=== PATIENT | male | born 1970 | race Hispanic/Latino ===

== ENCOUNTER 2021-01-03 14:20 | Outpatient (CLI) | payer BC, SELFPAY ==
--- NOTE | ~2021-01-03 | MR_ITS ---
EXAMINATION: MR ankle RT wo con DATE: 01/03/2021 15:35 INDICATION: Acute onset right ankle pain. TECHNIQUE: Magnetic resonance imaging (MRI) of the right ankle was performed without intravenous cont rast. Sequences included sagittal, coronal, and axial proton-density weighted fast spin echo without and with fat saturation. COMPARISON: None. FINDINGS: Medial ankle ligaments: Deep and superficial deltoid ligaments as well as the spring ligament are normal. Lateral ankle ligaments: The anterior and posterior inferior tibiofibular ligaments are normal. The anterior talofibular, calc aneofibular and posterior talofibular ligaments are normal. Tendons: Small calcaneal enthesophyte with mild enthesopathic ossification in the distal aspect of the otherwi se normal Achilles tendon. There is mild marrow edema underlying the insertion of the Achilles tendon . No cortical erosion or associated retrocalcaneal bursitis. The peroneus longus and brevis tendons a re normal. The tibialis anterior and extensor hallucis longus and extensor digitorum longus tendons a re normal. The tibialis posterior, flexor digitorum longus and flexor hallucis longus tendons are nor mal. Plantar fascia: Plantar aponeurosis is normal. Bones/other: Bone alignment is normal. Normal marrow signal aside from the previously noted marrow edema at the ce phalad aspect of the posterior tuberosity of the calcaneus. No fracture or pathologic marrow replacin g process. Joint spaces are normal. Fluid: Physiologic amount fluid in the joint space. No tenosynovitis, bursitis or other abnormal fluid colle ctions. IMPRESSION: 1. Mild Achilles enthesitis Reviewed, dictated and finalized at location A. IMPRESSION: 1. Mild Achilles enthesitis
== END 2021-01-03 14:21 | disposition home or self-care (01) ==
PROVIDERS: PCP Physician Assistant; Visit Provider Physician Assistant
DX: M77.51 Other enthesopathy of right foot and ankle (principal)
CPT/HCPCS: 73721

== ENCOUNTER → 2023-04-13 06:58 | Outpatient (CLI) | payer BC, SELFPAY ==
--- NOTE | ~2023-04-13 | MR_ITS ---
MRI of the right ankle Clinical history: Achilles tendinitis Technique: Coronal proton-density and proton-density fat-sat images, axial proton-density and proton- density fat-sat images, and sagittal proton-density and proton-density fat-sat images were acquired. Findings: Syndesmotic ligaments are intact. Anterior and posterior talofibular ligaments are intact. Calcaneofibular ligament is intact. Deltoid ligament is intact. Medial flexor tendons, peroneus longus tendon, anterior extensor tendons are intact. There is minimal distal Achilles tendinosis. Suspected focal longitudinal split tear of the peroneus brevis tendon. There is amorphous marrow edema at the posterior calcaneus at the Achilles tendon insertion. No osteo chondral lesion of the talar dome. Remaining bone marrow signals are intact. Joint spaces are preserv ed. No joint effusion. Plantar fascia is intact. Normal signal preserved in the sinus Tarsi. No soft tissue mass or fluid co llection seen. Impression: Minimal distal Achilles tendinosis with presumed reactive marrow edema at the posterior calcaneus. Co rrelate for bone contusion. Suspected focal longitudinal split tear of the peroneus brevis tendon at the level of the lateral mal leolar tip. Reviewed, dictated and finalized at location . Impression: Minimal distal Achilles tendinosis with presumed reactive marrow edema at the p osterior calcaneus. Correlate for bone contusion. Suspected focal longitudinal split tear of the peroneus brevis tendon at the le wale of the lateral malleolar tip.
== END ==
PROVIDERS: PCP Podiatrist Foot & Ankle Surgery; Visit Provider Podiatrist Foot & Ankle Surgery
DX: M76.61 Achilles tendinitis, right leg (principal)
CPT/HCPCS: 73721

== ENCOUNTER 2023-04-30 13:28 | Outpatient (CLI) | payer BC, SELFPAY ==
--- NOTE | 2023-04-30 15:13 | ECG_ITS ---
Measurements Intervals [place] Rate: 89 P: 41 UT: 143 QRS: 25 QRSD: 95 T: 56 QT: 361 QTc: 439 Interpretive Statements SINUS RHYTHM DELAYED PRECORDIAL R/S TRANSITION MINIMAL Q WAVES- INFERIOR LEADS BASELINE ARTIFACT- I, III, AVR, AVL, AVF BORDERLINE ECG NO PREVIOUS ECG AVAILABLE FOR COMPARISON Electronically Signed On 04-30-2023 18:46:08 [employer] by Michael Brink D.O.
== END 2023-04-30 13:29 | disposition home or self-care (01) ==
PROVIDERS: Visit Provider Podiatrist Foot & Ankle Surgery
DX: E78.00 Pure hypercholesterolemia, unspecified (principal); Z01.818 Encounter for other preprocedural examination; R94.31 Abnormal electrocardiogram [ECG] [EKG]
CPT/HCPCS: 93005

== ENCOUNTER 2023-05-01 02:42 | Day surgery (SDC) | payer BC, SELFPAY ==
[2023-04-28 09:15] VITALS: BMI 26.4
--- NOTE | 2023-04-28 09:19 | PC.NURSE ---
Report to the Outpatient Waiting Room, entrance under the green pavilion located off [facility], at time 9:00 on date 05/01/23. Planned Procedure Time: 11:00. Time changes happen often and if your time is changed the preop area will call you the afternoon before. - You and your visitor will be asked to self-screen and do not enter if you have any COVID symptoms. - A mask is optional within the hospital at this time. Patients may have clear liquids (water, carbonated beverages, clear teas, apple juice) until 3 hours prior to surgery (8:00) with a maximum of 20 ounces. - No food from midnight until time of surgery Take the following medications with a SIP of water the morning of surgery: NONE DO NOT STOP ANY OF YOUR OTHER PRESCRIPTION MEDICATIONS PRIOR TO SURGERY ?EXCEPT THE FOLLOWING Medications to discontinue per physician: N/A Date to take last dose: N/A Please no make-up, nail paraguayan, hairspray, perfume, deodorant, or body powder the day of surgery. No jewelry (including any body piercings) or valuables the day of surgery, leave them at home. Please take a shower or bath the night before, or the morning of, surgery with an antibacterial soap. Wear comfortable, loose fitting clothing. - Jewelry must be removed prior to entering the operating room. Rings and piercings that are not removed may be cut off. - The hospital will not accept responsibility for valuables. - Please leave all valuables, including medications, at home the day of surgery. If you are going home after surgery, a licensed driver license reviewing officer must drive you home. - NO public transportation without another adult if you receive anesthesia. - We recommend that an adult stay with you for 24 hours following discharge. - We also recommend that you do not drive, make important decision, drink alcoholic beverages, or take any drugs that were not prescribed by your health care provider for at least 24 hours after your discharge time. Follow any additional instructions given to you from your surgeon. If you or anyone in your household have experienced Covid symptoms in the past week, please notify your surgeon or the nurse liaison at the phone number below for possible testing. Telephone instructions given to PT - CLAUDIA RAMOS and asked if any additional questions and then verbalized understanding. Patient advised to call surgeon office or pre surgery nurse liaison [phone] if any additional questions.
[2023-05-01] VITALS (8 sets, daily range): BP systolic 120–145; BP diastolic 82–94; PULSE 62–73; RESP 9–20; TEMP 36.6; O2SAT 97–100
--- NOTE | ~2023-05-01 | XR_ITS ---
EXAMINATION: XR surgery orthopedic DATE: 05/01/2023 12:09 INDICATION: Right foot exostectomy and Achilles tendon reattachment TECHNIQUE: 2 fluoroscopic images of the right calcaneus were obtained during procedure performed by Lissett Amato. Radiologist was not present for the imaging or procedure. The amount of fluoroscopy time used during this procedure was 0.1 minutes. COMPARISON: Right ankle MRI dated 04/13/2023 FINDINGS: Images demonstrate some gas in the soft tissues at the surgical bed overlying the posterior tuberosit y of the calcaneus at the site of a prior moderate-sized Achilles calcaneal spur. There is also a sma ll plantar calcaneal spur. IMPRESSION: 1. Fluoroscopy utilized during reported exostectomy and Achilles tendon enhancement at the posterior tuberosity of the right calcaneus. See procedure note for further detail. Reviewed, dictated and finalized at location A. OVEMENT ANALYST IMPRESSION: 1. Fluoroscopy utilized during reported exostectomy and Achilles tendon enhance ment at the posterior tuberosity of the right calcaneus. See procedure note for further detail.
--- NOTE | 2023-05-01 07:13 | WPDHPUPDATE1 ---
History and Physical Update Update Date/Time: 05/01/23 07:13 History and Physical has been reviewed, including an updated exam of the patient. There are NO changes in the patient's condition. Risks, benefits, and alternatives have been discussed and questions answered. Patient agrees to proceed with procedure.
[2023-05-01] MEDS: LACTATED RINGERS 1,000 ML 30 ML IV CONT (09:25)
--- NOTE | 2023-05-01 10:18 | WPDANESEPPF ---
Anes - Initial Pre Proc Eval Procedure: Operation Date: 05/01/23 11:00 Proposed Procedures p Retrocalcaneal Exostectomy with Detachment and Re-Attachment of Achilles Tendon Right Foot - Paulino Amato JR, MD Date/Time: 05/01/23 10:18 Surgeon: Paulino Amato JR, MD Pre Op Diagnosis: achilles tendonopathy right foot Patient Data Age: 52 Gender: M Height: 1.8 m Weight: 87.4 kg Allergies Allergy/AdvReac Type Severity Reaction Status Date / Time No Known Allergies Allergy Unverified 04/28/23 09:15 Home Medications Medication Instructions Recorded Confirmed Type atorvastatin 40 mg tablet 40 mg PO HS 04/28/23 04/28/23 History Patient hx anesthesia problems: none Family hx anesthesia problems: none Results Review: All pre-operative results and documents have been reviewed as part of the pre-operative evaluation. [facility] Family History Family History Sibling Family history of gout Family history of heart disease in male family member before age 55 Family history of diabetes mellitus in first degree relative Mother Family history of liver disease Family history of diabetes mellitus in first degree relative Father Family history of heart disease in male family member before age 55 Grandparent Family history of heart disease in male family member before age 55 Other Diabetes mellitus Family history of allergic disorder Hypertension Social History Social History Smoking status: Never smoker Alcohol intake: former Alcohol use details: QUITTING Substance use: never Substance use type: does not use Living arrangements: with family Spiritual care concerns: No Anes - Eval Final PreProcedure Day of Procedure 05/01/23 10:18 Patient weight: overweight Heart: regular rate and rhythm Lungs: clear to auscultation Airway: Mallampati scale class II Neurological: alert and oriented Last oral intake: >/= 8 hours ASA classification: II Emergent: no Anesthetic plan: proceed Anesthesia type and monitoring: general ETT and standard monitoring Results Review: All pre-operative results and documents have been reviewed as part of the pre-operative evaluation. Informed Consent: The patient's anesthetic plan and its attendant risks and benefits were discussed with the patient/family/POA. Questions were solicited and answers provided to the satisfaction of the patient/family/POA.
[2023-05-01] MEDS: ceFAZolin 2 GM/D5W 50 ML 2 GM/50 ML BAG IVPB (10:46)
[2023-05-01] MEDS: LIDOCAINE HCL 2% PF INJ 5 ML VIAL 20 ML INFILTRATE (11:21)
--- NOTE | 2023-05-01 12:27 | W.PM.PROC2 ---
Procedure Note - Detailed Date of Procedure 05/01/23 Pre-op Diagnosis 1. 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 Gastroc Soleus Equinus right foot Post-op Diagnosis Same Procedure Performed 1. Retrocalcaneal exostectomy right foot with detachment and reattachment of the Achilles Tendon 2. Tendo Achilles Lengthening right foot Surgeon Paulino Amato JR, DARIEL Anesthesia General and Local Indications Pain to the retrocalcaneal region of the right foot Description of Procedure Under mild sedation, the patient was brought to the operating room, placed on the operating table in the prone position. A pneumatic thigh tourniquet was placed about the patient's right thigh . Following general anesthesia I performed a local anesthetic nerve block with 20cc's of2% Lidocaine plain and 0.5% Marcaine plain along with a proximal along the posterior proximal leg including the common peroneal nerve 1cm posterior and 3cm distal to the neck of the fibula. The foot and distal leg were then scrubbed, prepped, and draped in the usual aseptic manner. An Esmarch bandage was then used to examine the patient's right foot and pneumatic thigh tourniquet was then inflated. Surgery began in the following manner. Attention was directed to the posterior aspect of right leg where a curvilinear J shaped incision was made lateral to the retrocalcaneal exostosis which was palpable. The incision was made starting 6cm above the insertion of the Achilles and extending 3cm inferior and medial to the calcaneus. The incision was continued deep down through the subcutaneous tissues using sharp and blunt dissection. All bleeders were cauterized as necessary. At this point dissection was continued exposing the the insertional component of the Achilles Tendon. There was noted hypertrophy to the distal tendon. A midsubstance linear Achilles tendon incision was made exposing a large intrasubstance calcified region of bone which was carefully excised and discarded. There was a large posterior and superior exostosis noted which was resected with an osteotome and mallet and feathered smooth with a bone rasp. The area was flushed with copious amounts of sterile saline. Fluoroscopy was used to make sure that enough of the retrocalcaneal region was resected approximately 3m from superior to inferior and medial to lateral and 2cm from posterior to anterior. Next, utilizing standard principle and techniques the [employer] SpeedBridge 2.0 Fibertack system was used to reattach the debulked Achilles tendon to the posterior calcaneus. Less than 90 degrees of dorsiflexion of the ankle was noted post fixation so a small incision about the paratenon, next I made a proximal a triple wellington section. At this point adequate dorsiflexion was achieved. Adequate stable reattachment was noted. I flushed the wound site with copious amounts of sterile saline. Next, the paratenon and overlying subcutaneous tissue was reapproximated with 4-0 Vicryl and 4-0 Vicryl correspondingly. Next, the skin was reapproximated and coapted with 4-0 Monocryl in running subcuticular suture fashion technique. Upon completion of the procedure, the incision was dressed with Adaptic, 4 x 4's, Kerlix, and Dakota Wrap. The pneumatic thigh tourniquet was then deflated and a prompt hyperemic response noted to all digits of the right foot. A posterior splint was then applied. The patient did very well with the procedure and the anesthesia. Next, the patient was transferred to the recovery room with vital signs stable and vascular status intact to all toes of the foot. Following a period of postoperative monitoring, the patient will be discharged home on the following written and oral postoperative instructions: 1. Keep the dressing clean, dry, and intact. Use a cast protector bag with showers. 2. The patient to be strictly nonweightbearing with a knee scooter. 3. The patient should ice and elevate the right foot when at r
[2023-05-01] MEDS: fentaNYL CITRATE INJ (*CRX) 100 MCG/2 ML VIAL 25 MCG IV PUSH (12:59)
[2023-05-01] MEDS: oxyCODONE HCL (*CRX) 5 MG TAB IR PO (13:55)
== END 2023-05-01 14:23 | disposition home or self-care (01) ==
PROVIDERS: PCP Physician Assistant; Visit Provider Podiatrist Foot & Ankle Surgery
PROC: (CPT 27650; principal; 2023-05-01 11:00)
DX: M76.61 Achilles tendinitis, right leg (principal); M62.461 Contracture of muscle, right lower leg
CPT/HCPCS: 28118; 27685; 99199; A9270; J0690; J1100; J2250; J2405; J2704; J3010; J7120

== ENCOUNTER 2024-09-21 18:02 | Emergency (ER) | payer OTHER, SELFPAY ==
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
--- NOTE | ~2024-09-21 | XR_ITS ---
Right wrist Technique: PA, oblique, lateral, and ulnar deviation views were obtained. Clinical History: Pain Findings: No acute fracture or dislocation is seen. Osseous alignment is anatomic. Joint spaces are p reserved. Soft tissues are unremarkable. Impression: Unremarkable right wrist radiographs. Reviewed, dictated and finalized at location . Impression: Unremarkable right wrist radiographs.
[2024-09-21 18:18] VITALS: BP 159/93; PULSE 78; RESP 18; TEMP 36.7; O2SAT 99
--- NOTE | 2024-09-21 19:07 | ECG_ITS ---
Test Date: 2024-09-21 19:20:03 Measurements Intervals [place] Rate: 71 P: 35 CT: 151 QRS: 8 QRSD: 99 T: 38 QT: 394 QTc: 428 Interpretive Statements SINUS RHYTHM BORDERLINE R WAVE PROGRESSION, ANTERIOR LEADS BASELINE ARTIFACT- I, II, AVR, AVL BORDERLINE ECG No previous ECG available for comparison Electronically Signed On 09-21-2024 20:24:08 CDT by Michael Brink D.O.
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
--- NOTE | 2024-09-21 19:26 | PC.NURSE ---
Assumed care of patient after receiving bedside report from MARIE Mason @ [phone].
[2024-09-21 19:31] LABS: Basophils Absolute Auto 0.1 K/mm3 (0.0-0.1); Basophils Percent Auto 1.1 % (0.2-1.2); Eosinophils Absolute Auto 0.2 K/mm3 (0-0.3); Eosinophils Percent Auto 1.9 % (0-4.4); Hematocrit 45.7 % (42.0-52.0); Hemoglobin 15.9 g/dL (14.0-18.0); Immature Granulocyte Absolute 0.02 K/mm3 (0.00-0.031); Immature Granulocyte Percent A 0.2 % (0-0.5); Lymphocytes Absolute Auto 2.64 K/mm3 (0.9-3.2); Lymphocytes Percent Auto 26.7 % (18.3-44.2); Mean Corpuscular HGB Conc 34.8 g/dl (32-36); Mean Corpuscular Hemoglobin 30.6 pg (26-34); Mean Corpuscular Volume 88.1 fl (80-100); Mean Platelet Volume 10.8 fl (7.4-10.4); Monocytes Absolute Auto 0.5 K/mm3 (0.1-0.6); Monocytes Percent Auto 4.8 % (2.6-8.5); Neutrophils Absolute Auto 6.4 K/mm3 (1.3-6.7); Neutrophils Percent Auto 65.3 % (45.5-73.1); Platelet Count Result 200 k/mm3 (150-375); Red Blood Count 5.19 M/mm3 (4.6-6.20); Red Cell Distribution Width 12.6 % (11.5-14.5); White Blood Count 9.9 K/mm3 (4.5-10.0)
[2024-09-21 19:35] LABS: Add Urine Microscopic? NO; Appearance Urine Clear (Clear); Bilirubin Urine Negative (Negative); Blood Urine Negative (Negative); Color Urine Yellow (Yellow); Glucose Urine UA Negative (Negative); Ketones Urine Negative (Negative); Leukocyte Esterase Ur Negative LEU/UL (Negative); Nitrate Urine Negative (Negative); Protein Urine Negative (Negative); Specific Grav Ur 1.008 (1.001-1.035); Urobilinogen Urine 0.2 mg/dL (<2.0); pH Urine 6.5 (5.0-9.0)
--- OUTSIDE RECORDS SUMMARY | 2024-09-21 19:36 | XMS_ITS | Encounter Summary ---
Author Organization [facility] Healthcare Address [address] [place] [address] Care Team Providers Care Home Worker Name Role Phone Juliana Warner Primary Care Provider [phone] Encounter Details Date Type Department Care Team ([facility] st Contact Info) Description 09/17/2024 Results Follow-Up [facility] Family Medicine [address] [place] [address] Juliana Warner PA [address] [place] [address] Social History Tobacco Use Types Packs/Day Years Used Date Smoking Tobacco: Never Smokeless Tobacco: Never Alcohol Use Standard Drinks/Week Comments Yes 0 (1 standard drink = 0.6 oz pur e alcohol) social AUDIT-C Answer Date Recorded Q1: How often do you have a drink containing alc ohol? 2-4 times a month 10/02/2023 Q2: How many drinks containi ng alcohol do you have on a typical day when you are drinking? 3 or 4 10/02/2023 Q3: How often do you have si x or more drinks on one occasion? 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
--- OUTSIDE RECORDS SUMMARY | 2024-09-21 19:36 | XMS_ITS | Clinical Summary ---
Author Organization [facility] Address [address] [place] [address] Care Team Providers Care Cushion Spring Assembler Name Role Phone Unavailable Primary Care Provider Unavailabl e Source Comments [facility],non-owned Affiliates and Associated Physician Practices is amultiple site organization consisting of ambulatory clinics and hospital sitesin [place], [place], [place] and [place]. This disclosure is being madepursuant to the Care Everywhere program and may not contain all information available regarding this patient. Last updated 18.[facility] Allergies No known active allergies Medications * Be aware that medications may not be up to date on this document. Alwaysverify current medications with the patient. Medication Sig Dispensed Refills Start Date End Date Status atorvastatin (LIPITOR) 10 MG tablet 2 02/09/2019 Active fluticasone propionate (FLONASE) 50 MCG/ACT nasal spray [place] 1 spray into the nose Active gabapentin (NEURONTIN) 100 MG capsule Take 1 capsule by mouth at bedtime 90 capsule 1 03/21/2019 Active Social History Tobacco Use Types Packs/Day Years Used Date Smoking Tobacco: Never Smokeless Tobacco: Never Alcohol Use Standard Drinks/Week Comments Yes 0 (1 standard drink = 0.6 oz pur e alcohol) Sex and Gender Information Value Date Recorded Sex Assigned at Not on file Gender Identity Not on file Sexual Orientation Not on file Last Filed Vital Signs Vital Sign Reading Time Taken Comments Blood Pressure 141/82 03/21/2019 7:47 AM CDT Pulse 73 03/21/2019 7:47 AM CDT Temperature - - Respiratory Rate - - Oxygen Saturation - - Inhaled Oxygen Concentration - - Weight 87.1 kg (192 lb) 03/21/2019 7:47 AM CDT Height 180.3 cm (5' 11 ) 03/21/2019 7:47 AM CDT Body Mass Index 26.78 03/21/2019 7:47 AM CDT Plan of Treatment Health Maintenance Due Date Last Done Comments COLOGUARD (AGES 45-75) - COL ON CA SCREENING 1970 COLON MONITORING 1970 COLONOSCOPY - COLON CA SCREENING 1970 CT COLONOGRAPHY - COLON CA SCREENING 1970 Colorectal Cancer Screening 1970 FIT - COLON CA SCREENING 1970 FLEX SIG - COLON CA SCREENING 1970 HIV SCREENING 1985 HEPATITIS C SCREENING 10/09/1988 DTAP/TDAP/TD VACCINES (1 - Tdap) 1989 HEPATITIS B VACCINE (1 of 3 - 19+ 3-dose series) 1989 PNEUMOCOCCAL VACCINE 50+ (1 of 1 - PCV) 2020 ZOSTER VACCINE (1 of 2) 2020 SCREENING FOR DIABETES 03/25/2022 03/25/2019 COVID-19 VACCINE (1 - 2023-2 5 season) 2024 INFLUENZA VACCINE (#1) 2024 DEPRESSION SCREENING 06/22/2024 HIB VACCINE Aged Out No longer eligi ble based on patient's age to complete this topic HPV VACCINE Aged Out No longer eligi ble based on patient's age to complete this topic MENINGOCOCCAL (Group B) VACC INE SHARED DECISION-MAKING Aged Out No longer eligibl e based on patient's age to complete this topic MENINGOCOCCAL GROUPS A/C/Y/W VACCINE Aged Out No longer eligible b ased on patient's age to complete this topic PNEUMOCOCCAL VACCINE Aged Out No long er eligible based on patient's age to complete this topic Procedures Procedure Name Priority Date/Time Associated Diagnosis Comments HEMOGLOBIN A1C 03/25/2019 7:10 AM CDT from Last 3 Months or Most Recently Relevant to Health Maintenance Results * HEMOGLOBIN A1C (03/25/2019 7:10 AM CDT) Hemoglobin A1c 5.4 <5.7 % of total Hgb [facility] Comment: For the purpose of screening for the presence of diabetes: <5.7% Consistent with the absence of diabetes 5.7-6.4% Consistent with increased risk for diabetes (prediabetes) > or =6.5% Consistent with diabetes This assay result is consistent with a decreased risk of diabetes. Currently, no consensus exists regarding use of hemoglobin A1c for diagnosis of diabetes in children. According to [place] Diabetes Association (ADA) guidelines, hemoglobin A1c <7.0% represents optimal control in non- diabetic patients. Different metrics may apply to specific patient populations. Standards of Medical Care in Diabetes(ADA). Test Performed at: [facility] [address] [place] [address] RJ BUI DO,MPH 03/25/2019 7:10 AM CDT 03/25/2019 7:12 AM CDT Veena Nicholas MD LAB - CHEMISTRY [facility] Organization Address City/State/ZIP Co de Phone Number [facility] [address] [place] [address] from Last 3 Months or Most Recently Relevant to Health Maintenance
--- OUTSIDE RECORDS SUMMARY | 2024-09-21 19:36 | XMS_ITS | Clinical Summary ---
Author Organization [facility] Address [facility] [address] [place] [address] Care Team Providers Care Entry Level Software Engineer Name Role Phone Juliana Warner Primary Care Provider [phone] Allergies No known active allergies Medications levothyroxine 25 MCG tablet Take 25 mcg by mouth daily. 03/17/2021 Active rosuvastatin 10 MG tablet Take 10 mg by mouth daily. 03/15/2021 Active fluticasone propionate 50 MCG/ACT nasal spray 1 spray by Nasal route. Active Active Problems No known active problems Immunizations Name Administration Dates Next Due [email or web address] ([employer]id[employer]) COVID-19 AD26 VACCINE 0.5 ML IM SUSP 04/26/2021,08/30/2020 Family History Medical History Relation Comments Heart Disease Father Cancer Mother Relation Status Comments Father Alive Mother Alive Social History Tobacco Use Types Packs/Day Years Used Date Smoking Tobacco: Never Smokeless Tobacco: Never Alcohol Use Standard Drinks/Week Comments Yes 0 (1 standard drink = 0.6 oz pur e alcohol) occas. Sex and Gender Information Value Date Recorded Sex Assigned at Not on file Legal Sex Male 11:53 AM CDT Gender Identity Not on file Sexual Orientation Not on file Last Filed Vital Signs Vital Sign Reading Time Taken Comments Blood Pressure 113/83 05/09/2021 8:25 AM CURVE SAW OPERATOR Pulse 56 05/09/2021 8:25 AM CURVE SAW OPERATOR Temperature 37.6 C (99.7 F) 05/09/2021 8:04 AM CURVE SAW OPERATOR Respiratory Rate 16 05/09/2021 8:25 AM CURVE SAW OPERATOR Oxygen Saturation 97% 05/09/2021 8:25 AM CURVE SAW OPERATOR Inhaled Oxygen Concentration - - Weight 86.2 kg (190 lb) 05/06/2021 11:06 AM CURVE SAW OPERATOR Height 180.3 cm (5' 11 ) 05/06/2021 11:06 AM CURVE SAW OPERATOR Body Mass Index 26.5 05/06/2021 11:06 AM CURVE SAW OPERATOR Plan of Treatment Health Maintenance Due Date Last Done Comments Annual Physical 1973 Hepatitis C 1988 Hepatitis B Vaccines (1 of 3 - 19+ 3-dose series) 1989 Zoster Vaccines (1 of 2) 2020 COVID-19 Vaccine (3 - 2023-2 5 season) 2024 04/26/2021, 08/30/2020 DTaP, Tdap and Td Vaccines ( 2 - Td or Tdap) 12/31/2028 12/31/2018 Colorectal Cancer Screening Colonoscopy (10 Years) 05/09/2031 05/09/2021, 05/09/2021 Meningococcal B Vaccine Aged Out No l onger eligible based on patient's age to complete this topic Meningococcal Vaccine Aged Out No manuel dominique eligible based on patient's age to complete this topic Pneumococcal Vaccine: Pediatrics (0 to 5 Years) and At-Risk Patients (6 to 64 Years) Aged Out No longer eligible b ased on patient's age to complete this topic RSV Immunizations Under 20 Months Aged Out No longer eligible b ased on patient's age to complete this topic Procedures Procedure Name Priority Date/Time Associated Diagnosis Comments COLONOSCOPY Routine 05/09/2021 7:03 AM CURVE SAW OPERATOR from Last 3 Months or Most Recently Relevant to Health Maintenance Insurance Care Teams Entry Level Software Engineer Relationship Specialty Start Date End Date Juliana Warner PA [address] [place] [address] PCP - General PHYSICIAN CMM OPERATOR 05/09/21
--- OUTSIDE RECORDS SUMMARY | 2024-09-21 19:37 | XMS_ITS | Clinical Summary ---
Author Organization [facility] [address] [facility] Address [address] [place] [address] Care Team Providers Care Tutorial Laboratory Supervisor Name Role Phone Juliana Warner Primary Care Provider [phone] Allergies Active Allergy Reactions Criticality Noted Date Comments Oxycodone Chest tightness Medium 10/02/2023 Medications fluticasone propionate (FLONASE) 50 mcg/actuation nasal spray Administer 1 spray into each nostril as needed for rhinitis Active atorvastatin (LIPITOR) 40 mg tabletIndications: Mixed hyperlipidemia Take 1 tablet (40 mg total) by mouth daily 90 tablet 1 4 Active lisinopriL (PRINIVIL,ZESTRIL) 20 mg tablet Take 1 tablet (20 mg total) by mouth daily 90 tablet 1 4 Active Active Problems Problem Noted Date Diagnosed Date Pre-diabetes 04/08/2024 Assessment & Plan (05/13/2024 11:06 AM EVENT PROMOTER): Pre-diabetes/hyperglycemia is a precursor to Dm. Stressed importance of working on diet (decrease your simple sugars and one carbohydrate with each meal) and increase you exercise to achieve weight loss and this will help prevent you from progressing to diabetes. Assessment & Plan (04/08/2024 7:45 PM CDT): Pre-diabetes/hyperglycemia is a precursor to Dm. Stressed importance of working on diet (decrease your simple sugars and one carbohydrate with each meal) and increase you exercise to achieve weight loss and this will help prevent you from progressing to diabetes. Hypertension, essential 04/08/2024 Assessment & Plan (05/13/2024 11:06 AM EVENT PROMOTER): Bp is stable/in acceptable range for any co-morbidities. Encouraged to limit sodium intake and exercise for weight control. Continue lisinopril 20. Continue to monitor readings and if systolic is again above 140 consistently he is to call. Follow up in September for a wellness or sooner for any other problems or concerns Assessment & Plan (04/08/2024 7:46 PM CDT): Encouraged to limit sodium intake and exercise for weight control. BP is still not well controlled. Tolerating lisinopril 10. Increase to 20 mg. Come in in couple of weeks for blood pressure check with the nurse to make sure we have him in good range. Need for influenza vaccination 05/04/2022 Assessment & Plan (04/08/2024 7:45 PM CDT): Flu vaccine updated in the office today Assessment & Plan (05/04/2022 10:09 AM EVENT PROMOTER): Updated in the office today Acquired hypothyroidism 03/15/2021 Assessment & Plan (05/13/2024 11:06 AM EVENT PROMOTER): Check labs Assessment & Plan (10/03/2023 2:42 PM CDT): Continue levothyroxine. Monitor labs. Assessment & Plan (04/11/2023 1:44 PM CDT): Continue levothyroxine. Monitor labs. Patient's stops taking the thyroid and his level has stabilized in normal range. Reviewed that early hypothyroid can wax and wane. Will continue to keep monitor on his level. Reviewed signs and symptoms of hypothyroid if these would occur with check him sooner. Assessment & Plan (02/14/2023 10:47 PM CDT): Continue levothyroxine. Monitor labs. Assessment & Plan (05/04/2022 10:08 AM EVENT PROMOTER): Patient stop the levothyroxine. Recheck labs Assessment & Plan (12/03/2021 7:52 AM CDT): Continue levothyroxine. Monitor labs. Assessment & Plan (03/15/2021 6:01 PM CDT): Tolerating the levothyroxine without problems. Due to recheck labs. BMI 27.0-27.9,adult 02/14/2020 Assessment & Plan (05/13/2024 10:08 AM EVENT PROMOTER): Weight/BMI is in healthy range. Continue healthy lifestyle to maintain. Assessment & Plan (04/01/2024 7:23 AM CDT): Weight/BMI is in healthy range. Continue healthy lifestyle to maintain. Assessment & Plan (02/18/2020 8:23 PM CDT): Weight/BMI is in healthy range. Continue healthy lifestyle to maintain. Mixed hyperlipidemia 12/31/2017 Assessment & Plan (05/13/2024 11:05 AM EVENT PROMOTER): Encouraged patient to follow low fat/low chol diet like the Mediterranean diet. Increase good fats in the diet. Increase exercise. Monitor labs as needed. Continue atorvastatin 40 Assessment & Plan (04/08/2024 7:45 PM CDT): Encouraged patient to follow low fat/low chol diet like the Mediterranean diet. Increase good fats in the diet. Increase exercise. Monitor labs as needed. Continue atorvastatin 40 Assessment & Plan (10/03/2023 2:42 PM CDT): Encouraged patient to follow low fat/low chol diet like the Mediterranean diet. Increase good fats in the diet. Increase exercise. Monitor labs as needed. Need to recheck labs to determine if he needs to reconsider starting the statin. Assessment & Plan (04/11/2023 1:44 PM CDT): Encouraged patient to follow low fat/low chol diet like the Mediterranean diet. Increase good fats in the diet. Increase exercise. Monitor labs as needed. Patient's levels came back significantly elevated off of the statin. Reviewed risks benefits alternatives side effects and proper use. Patient ready to restart Lipitor 40 mg. Take 1 daily. Recheck LFTs in a month and then in 4-6 months will recheck lipid panel. Follow-up for any other problems or concerns Assessment & Plan (02/14/2023 10:47 PM CDT): Encouraged patient to follow low fat/low chol diet like the Mediterranean diet. Increase good fats in the diet. Increase exercise. Monitor labs as needed. Patient prefers to use behavioral changes and his Israeli concoction to help with his diabetes. Strongly encouraged him to work hard and will recheck in 3-4 months and if values are still elevated will consider statin again. He is in agreement with the plan Assessment & Plan (05/04/2022 10:08 AM EVENT PROMOTER): Encouraged patient to follow low fat/low chol diet like the Mediterranean diet. Increase good fats in the diet. Increase exercise. Monitor labs as needed. ast labs were in November and there was a significant improvement in his lipids especially with the LDL moving from 242 down to 145 with the Crestor. Stressed that that to 40 to his independent risk factor for heart attack and stroke and that being off the Crestor I suspect it will begin to go up. He is not been off for very long. Will go ahead and recheck the labs in could consider restarting versus starting Livalo to see if he tolerates better. If he refuses statin will need to consider referral to Cardiology to discuss alternative medications. Assessment & Plan (12/03/2021 7:52 AM CDT): Encouraged patient to follow low fat/low chol diet like the Mediterranean diet. Increase good fats in the diet. Increase exercise. Monitor labs as needed. Patient stopped crestor LDL are over 200 so at high CV risk. Reviewed with patient. Will recheck labs and if can't tolerate the statin will need to see Cardio to discuss options. Assessment & Plan (03/15/2021 5:59 PM CDT): This is a significant, separately identifiable problem that was evaluated and managed on the same day as the wellness exam Encouraged patient to follow fat/low chol diet like the Mediterranean diet. Increase good fats in the diet. Increase exercise. Monitor labs as needed. Encouraged starting a statin again -- Reviewed risks, benefit, alternatives, side effects and proper use. He is willing to consider ---will send Crestor 10mg one daily. Recheck labs in 4 months. Assessment & Plan (01/13/2021 12:45 PM CDT): Encouraged patient to follow fat/low chol diet like the Mediterranean diet. Increase good fats in the diet. Increase exercise. Monitor labs as needed. Stopped statin. Recheck labs as he would benefit from statin due to DM diagnosis Assessment & Plan (02/18/2020 8:22 PM CDT): Encouraged patient to continue low fat/low chol diet. Continue exercise. Increase good fats in the diet. Monitor labs as needed. Pt stopped the statin as ran out----will await lab.s Family history of coronary artery disease in bro ther 12/31/2017 Assessment & Plan (02/18/2020 8:22 PM CDT): Check labs Resolved Problems Problem Noted Date Diagnosed Date Resolved Date Acute cough 11/12/2023 04/08/2024 Overview (11/12/2023): Take Medrol Dosepak and Zithromax as directed. Notify the office without improvement of symptoms Diabetes mellitus screening 10/03/2023 04/08/2024 Assessment & Plan (10/03/2023 2:42 PM CDT): Check labs BMI 28.0-28.9,adult 04/11/2023 11/12/19 Assessment & Plan (10/03/2023 2:42 PM CDT): Weight/BMI is in healthy range. Continue healthy lifestyle to maintain. Assessment & Plan (04/11/2023 1:44 PM CDT): Weight/BMI is in healthy range. Continue healthy lifestyle to maintain. Dyslipidemia 04/11/2023 04/11/2023 BMI 27.0-27.9,adult 02/06/2023 04/11/20 Assessment & Plan (02/06/2023 8:09 AM CDT): Weight/BMI is in healthy range. Continue healthy lifestyle to maintain. Left foot pain 05/04/2022 04/08/2024 Assessment & Plan (05/04/2022 10:09 AM EVENT PROMOTER): On exam today his left foot pain has completely resolved. I was unable to elicit any discomfort and no problems or pain with range of motion. Encouraged to continue to monitor. If it reoccurs he can follow-up and may consider referral to Podiatry. Encouraged stretching and icing at the end of a day's work. BMI 28.0-28.9,adult 05/02/2022 02/07/20 Assessment & Plan (05/02/2022 8:45 AM EVENT PROMOTER): Weight/BMI is in healthy range. Continue healthy lifestyle to maintain. Abdominal pain, RLQ 12/03/2021 04/08/20 Assessment & Plan (12/03/2021 10:11 AM CDT): Exam today showed a localized right lower quadrant pain and patient was apprised have tender he was. There was rebound. Will obtain stat imaging to rule out appendicitis versus colitis versus other etiology. He has not eaten this morning. Pending the results will formulate a final plan. STAT CT today: IMPRESSION: 1. No acute findings. Normal appendix. 2. Hepatic steatosis. BRAT diet with slow progression as tolerated. Stop Pepto and kaopectate. If dark stools continue he will need to followup. Await labs. Fatty liver diet and exercise. Prostate cancer screening 12/03/2021 Assessment & Plan (10/03/2023 2:42 PM CDT): Check labs Assessment & Plan (12/03/2021 7:53 AM CDT): Check labs Elevated BP without diagnosis of hypertension 03/15/2004/08/2024 Assessment & Plan (10/03/2023 2:42 PM CDT): BP is upper end of normal. Recommend getting a blood pressure cuff and taking readings home and send them in via [employer] or call them in the next week or so. If consistently above about 135/85 will need to start medication. Patient is in agreement with the plan. Discussed lisinopril including its risks benefits alternatives side effects and proper use and would start it if needed Assessment & Plan (03/15/2021 5:57 PM CDT): This is a significant, separately identifiable problem that was evaluated and managed on the same day as the wellness exam Encouraged to limit sodium intake and exercise for weight control. This is the first reading that is elevated. He did drink coffee this morning before he came in. Denies CP, SOB, visual changes. He doesn't have a cuff at home for retesting so will have him return on Thursday to recheck. If still elevated, will need to start antihypertensive. He is agreement. Colon cancer screening 01/13/202104/08 Assessment & Plan (01/13/2021 12:46 PM CDT): Refer to Dr. Guallpa for colonoscopy Fatigue 01/13/2021 04/08/2024 Assessment & Plan (10/03/2023 2:42 PM CDT): Probably multifactorial. Check labs and followup to re-evaluate Assessment & Plan (12/03/2021 7:52 AM CDT): Probably multifactorial. Check labs and followup to re-evaluate Assessment & Plan (01/13/2021 12:46 PM CDT): Probably multifactorial. Check labs and followup to re-evaluate BMI 28.0-28.9,adult 01/07/2021 12/04/19 Assessment & Plan (03/15/2021 7:14 AM CDT): Weight/BMI is in healthy range. Continue healthy lifestyle to maintain. Assessment & Plan (01/07/2021 1:11 PM CDT): Weight/BMI is in healthy range. Continue healthy lifestyle to maintain. BMI 28.0-28.9,adult 12/25/2020 01/08/20 21 Assessment & Plan (12/25/2020 10:11 AM CDT): Weight/BMI is in healthy range. Continue healthy lifestyle to maintain. Acute right ankle pain 12/25/202004/08 Assessment & Plan (01/13/2021 12:46 PM CDT): Continue per Dr. Amato. Assessment & Plan (12/25/2020 12:47 PM CDT): Retrieve xray records from [facility] Advised RICE therapy, brace when ambulating and elevation of foot when able Advised f/u in 1w if not improving, sooner if worsening Will attempt to order/schedule mri of hindfoot Other fatigue 02/18/2020 01/13/2021 Cyst of skin 02/18/2020 04/08/2024 Assessment & Plan (02/18/2020 8:24 PM CDT): Cyst vs lipoma. Not tender. Recommend to monitor. If increases in size or becomes red or painful will consider removal/teratment Acute non-recurrent frontal sinusitis 06/27/2019 02/13/2020 Assessment & Plan (06/27/2019 6:54 PM EVENT PROMOTER): Augmentin 875 mg BID x 10 days. Instructed to increase clear liquids, rest, and vitamin C. OTC medications as needed for symptom control. Recommended follow-up with PCP if symptoms worsen, don't improve, or new symptoms develop. Upper back pain on right side 06/27/2019 02/18/2020 Assessment & Plan (06/27/2019 6:56 PM EVENT PROMOTER): Ibuprofen as directed as needed for pain. 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 Encouraged Calcium and Vitamin D and weight bearing exercise for bone health. Reviewed immunizations Reviewed age appropirate screenings. Assessment & Plan (03/15/2021 5:58 PM CDT): Encouraged healthy lifestyle, good nutrition and exercise. Encouraged Calcium and Vitamin D and weight bearing exercise for bone health. Reviewed immunizations Reviewed age appropirate screenings. Assessment & Plan (02/18/2020 8:22 PM CDT): Encouraged healthy lifestyle, good nutrition and exercise. Encouraged Calcium and Vitamin D and weight bearing exercise for bone health. Reviewed immunizations Reviewed age appropirate screenings. Chest pain 12/31/2017 12/31/2018 Overview (12/30/2018): Atypical chest pain Diet-controlled diabetes mellitus 12/31/2017 04/11/2023 Assessment & Plan (02/14/2023 10:46 PM CDT): Stressed importance of continued A1c control to minimize the penitentiary effects of diabetes. Bring accuchecks to office when instructed to do so. Check A1c about every 3-6 months. Take medication as prescribed. Get annual eye exam. Encouraged GABRIELLE/Statin if able to tolerate. Encouraged weight control and encouraged diabetic diet and exercise. Continue to have diet controlled with good results Assessment & Plan (05/04/2022 10:08 AM EVENT PROMOTER): Diabetes is currently diet controlled. Continue to monitor labs Assessment & Plan (12/03/2021 7:51 AM CDT): Check labs Assessment & Plan (01/13/2021 12:45 PM CDT): Stressed importance of continued A1c control to minimize the penitentiary effects of diabetes. Bring accuchecks to office when instructed to do so. Check A1c about every 3-6 months. Take medication as prescribed. Get annual eye exam. Encouraged GABRIELLE/Statin if able to tolerate. Encouraged weight control and encouraged diabetic diet and exercise. Diet controlled currently. Check labs for stability Assessment & Plan (02/18/2020 8:21 PM CDT): Stressed importance of continued A1c control to minimize the penitentiary effects of diabetes. Bring accuchecks to office when instructed to do so. Check A1c about every 3-6 months. Take medication as prescribed. Get annual eye exam. Encouraged GABRIELLE/Statin if able to tolerate. Encouraged weight control and encouraged diabetic diet and exercise. Currently diet controlled. Check labs Overweight 12/31/2017 12/31/2018 Chronic fatigue 11/26/2017 12/31/2018 Encounters Date Type Department Care Team Description 09/17/2024 Results Follow-Up [facility] [address] [address] Juliana Warner PA from Last 3 Months Immunizations Immunization Administration Dates Next Due Influenza, Quadrivalent, Spl it, Preservative Free, Intramuscular 03/27/2023,05/02/2022 Influenza, Trivalent, Preser vative Free, Intramuscular 04/01/2024 Influenza, Unspecified 07/23/2022(Deferr ed: Patient Refused),07/23/2021(Deferred: Patient Refused),06/22/2020(Deferred: Patient Refused),03/22/2019(Deferred: Patient Refused) [facility] SARS-CoV-2 Vaccination 08/30/2020 Tdap 12/31/2018 Surgical History Surgery Date Site/Laterality Comments CARTILAGE SURGERY torn cartilage DENTAL SURGERY 09/20/2018 - 10/19/2018 tooth transplant ACHILLES TENDON SURGERY Right Medical History Medical History Date Comments HLD (hyperlipidemia) Diabetes mellitus (HCC) diet con trolled Hypertension Family History Medical History Relation Name Comments triple bypass Brother Heart disease Father Hyperlipidemia Father triple bypass Mother enlarged heart Paternal Grandfather Relation Name Status Comments Brother Father Alive Mother Alive Paternal Grandfather Social History Tobacco Use Types Packs/Day Years Used Date Smoking Tobacco: Never Smokeless Tobacco: Never Tobacco Cessation:Counseling Given: Not Answered Alcohol Use Standard Drinks/Week Comments Yes 0 [...] on file Legal Sex Male 8:51 PM EVENT PROMOTER Gender Identity Not on file Sexual Orientation Not on file Occupation Industry Job Start Date Job End Date construction Not on file Not on file Not on file Obstetrics History Last Filed Vital Signs Vital Sign Reading Time Taken Comments Blood Pressure 108/70 05/13/2024 10:02 AM EVENT PROMOTER Pulse 67 05/13/2024 10:02 AM EVENT PROMOTER Temperature 38.3 C (100.9 F) 05/13/2024 10:02 AM EVENT PROMOTER Was in heated car Respiratory Rate 16 04/01/2024 7:05 AM CDT Oxygen Saturation 97% 05/13/2024 10: 02 AM EVENT PROMOTER Inhaled Oxygen Concentration - - Weight 89.4 kg (197 lb) 05/13/2024 10:0 2 AM EVENT PROMOTER Height 180.3 cm (5' 11 ) 05/13/2024 10: 02 AM EVENT PROMOTER Body Mass Index 27.48 05/13/2024 10:02 AM EVENT PROMOTER Plan of Treatment Health Maintenance Due Date Last Done Comments Hepatitis C Screening 1970 Hepatitis B Screening 1988 Covid-19 Vaccine ( season) 2024 04/26/2021, 08/30/2020 Regular Well Visit/Exam 18-64 10/01/2024 10/02/2023, 03/15/2021, 02/14/2020, Additional history exists Depression Screening 05/13/2025 05/13/2024, 04/01/2024, 11/12/2023, Additional history exists Zoster Vaccine (1 of 2) 05/13/2025 Post poned from 2020 (Patient declined, but will receive in the future) Prostate Cancer Screening-PSA 10/02/2025 10/03/2023, 12/03/2021, 01/28/2019 Colon Cancer Screening-Colonoscopy 05/24/2026 05/24/2021, 05/10/2021, 05/10/2021, Additional history exists DTaP/Tdap/Td Vaccine (2 - Td or Tdap) 12/31/2028 12/31/2018 Influenza Vaccine Completed 04/01/2024, , 05/02/2022 Pneumococcal vaccine <65 Aged Out No longer eligible based on patient's age to complete this topic Procedures Procedure Name Priority Date/Time Associated Diagnosis Comments TSH Routine 09/16/2024 10:58 AM CDT Acquired hypothyroidism LIPID PANEL Routine 09/16/2024 10:58 AM CDT Mixed hyperlipidemia HEMOGLOBIN A1C Routine 09/16/2024 10:58 AM CDT Pre-diabetes COMPREHENSIVE METABOLIC PANEL Routine 09/16/2024 10:58 AM CDT Mixed hyperlipidemia PSA SCREEN Routine 10/03/2023 7:29 AM CDT Prostate cancer screening HM COLONOSCOPY Routine 05/24/2021 from Last 3 Months or Most Recently Relevant to Health Maintenance Results * TSH (09/16/2024 10:58 AM CDT) TSH 0.99 0.40 - 4.50 mIU/L [facility] Blood 09/16/2024 10:5 8 AM CDT 09/16/2024 10:58 AM CDT Narrative [facility] - 09/17/2024 5:20 AM CDT FASTING:YES FASTING: YES us Juliana WHITMORE LAB BLOOD ORDERABLES Final Result [facility] [address] [place] [address] * (ABNORMAL) Hemoglobin A1c (09/16/2024 10:58 AM CDT) Hgb A1C 5.7(H) <5.7 % of total Hgb [facility] Comment: For someone without known diabetes, a hemoglobin A1c value between 5.7% and 6.4% is consistent with prediabetes and should be confirmed with a follow-up test. For someone with known diabetes, a value <7% indicates that their diabetes is well controlled. A1c targets should be individualized based on duration of diabetes, age, comorbid conditions, and other considerations. This assay result is consistent with an increased risk of diabetes. Currently, no consensus exists regarding use of hemoglobin A1c for diagnosis of diabetes for children. Blood 09/16/2024 10:5 8 AM CDT 09/16/2024 10:58 AM CDT Narrative [facility] - 09/17/2024 5:20 AM CDT FASTING:YES FASTING: YES Juliana WHITMORE LAB BLOOD ORDERABLES Final Result [facility] [address] [place] [address] * Lipid panel (09/16/2024 10:58 AM CDT) Pathologist [facility] Cholesterol 138 <200 mg/dL [facility] HDL 43 > OR = 40 mg/dL [facility] Triglycerides 125 <150 mg/dL [facility] LDL 74 mg/dL (calc) [facility] Comment: Reference range: <100 Desirable range <100 mg/dL for primary prevention; <70 mg/dL for patients with CHD or diabetic patients with > or = 2 CHD risk factors. LDL-C is now calculated using the Hilario-Danyel calculation, which is a validated novel method providing better accuracy than the Friedewald equation in the estimation of LDL-C. Hilario SS et al. ALOK. 2013;310(19): 1613-9233 (http://education.Trot.Freeppie/faq/DDO759) Chol/HDL ratio 3.2 <5.0 (calc) [facility] Non-HDL, (LDL+VLDL) 95 <130 mg/dL (calc) [facility] Comment: For patients with diabetes plus 1 major ASCVD risk factor, treating to a non-HDL-C goal of <100 mg/dL (LDL-C of <70 mg/dL) is considered a therapeutic option. Blood 09/16/2024 10:5 8 AM CDT 09/16/2024 10:58 AM CDT Narrative [facility] - 09/17/2024 5:20 AM CDT FASTING:YES FASTING: YES Juliana WHITMORE LAB BLOOD ORDERABLES Final Result [facility] [address] [address] [place] [address] * (ABNORMAL) Comprehensive metabolic panel (09/16/2024 10:58 AM CDT) Pathologist [facility] Glucose 105(H) 65 - 99 mg/dL [facility] Comment: Fasting reference interval For someone without known diabetes, a glucose value between 100 and 125 mg/dL is consistent with prediabetes and should be confirmed with a follow-up test. BUN 16 7 - 25 mg/dL [facility] Creatinine 0.88 0.70 - 1.30 mg/dL [facility] eGFR 103 > OR = 60 mL/min/1.7 3m2 [facility] BUN/creat ratio SEE NOTE: 6 - 22 (calc) [facility] Comment: Not Reported: BUN and Creatinine are within reference range. Sodium 140 135 - 146 mmol/L [facility] Potassium, pl 4.5 3.5 - 5.3 mmol/L [facility] Chloride 104 98 - 110 mmol/L [facility] CO2 27 20 - 32 mmol/L [facility] Calcium 9.6 8.6 - 10.3 mg/dL [facility] Protein, sr 7.3 6.1 - 8.1 g/dL [facility] Albumin 4.9 3.6 - 5.1 g/dL [facility] GLOBULIN 2.4 1.9 - 3.7 g/dL (calc) [facility] Alb/glob ratio 2.0 1.0 - 2.5 (calc) [facility] Bilirubin, total 1.2 0.2 - 1.2 mg/dL [facility] Alk phos 63 35 - 144 U/L [facility] AST 14 10 - 35 U/L [facility] ALT (SGPT) 15 9 - 46 U/L [facility] Blood 09/16/2024 10:5 8 AM CDT 09/16/2024 10:58 AM CDT Narrative [facility] - 09/17/2024 5:20 AM CDT FASTING:YES FASTING: YES Juliana WHITMORE LAB BLOOD ORDERABLES Final Result Performing Organization Address [facility] de Phone Number [facility] [address] [place] [address] * PSA screen (10/03/2023 7:29 AM CDT) PSA 1.73 < OR = 4.00 ng/mL [facility] Comment: The total PSA value from this assay system is standardized against the WHO standard. The test result will be approximately 20% lower when compared to the equimolar-standardized total PSA (Shashi Herron). Comparison of serial PSA results should be interpreted with this fact in mind. This test was performed using the Siemens chemiluminescent method. Values obtained from different assay methods cannot be used interchangeably. PSA levels, regardless of value, should not be interpreted as absolute evidence of the presence or absence of disease. Blood 10/03/2023 7:29 AM CDT 10/03/2023 7:30 AM CDT Narrative [facility] - 10/05/2023 5:28 AM CDT FASTING:YES FASTING: YES Juliana WHITMORE LAB BLOOD ORDERABLES Final Result Performing Organization Address [facility] Co de Phone Number [facility] [address] [place] [address] * (ABNORMAL) HM COLONOSCOPY (05/24/2021) Ambar Guallpa MD HEALTH MAINTENANCE Edited Result - Final from Last 3 Months or Most Recently Relevant to Health Maintenance Insurance [facility] Care Teams Tutorial Laboratory Supervisor Relationship Specialty Start Date End Date Juliana Warner PA [address] [address] PCP - General Internal Medicine 06/27/19
--- OUTSIDE RECORDS SUMMARY | 2024-09-21 19:37 | XMS_ITS | Encounter Summary ---
Author Organization [facility] Facility Care Team Providers Care Signal Maintenance Technician Name Role Phone Davonte Wilkinson MD Primary Care Provider [phone] Juliana Warner Primary Care Provider [phone] Encounter Details Date Type Department Care Team (Latest Contact Info) Description 01/15/2018 Orders Only [facility] CLINCONV ProviderHelene MD [address] [place] [address] Social History Tobacco Use Types Packs/Day Years Used Date Smoking Tobacco: Never Assessed Sex and Gender Information Value Date Recorded Sex Assigned at Not on file Legal Sex Male 8:51 PM ELECTRONICS LEAD Gender Identity Not on file Sexual Orientation Not on file documented as of this encounter Plan of Treatment Not on file documented as of this encounter Procedures Procedure Name Priority Date/Time Associated Diagnosis Comments CARDIOLOGY REPORT 01/15/2018 12: 00 AM CDT documented in this encounter Results * CARDIOLOGY REPORT (01/15/2018 12:00 AM CDT) Anatomical Region Laterality Modality Other Narrative 01/15/2018 12:00 AM CDT Ordered by an unspecified provider. us Historical Provider [facility]E Final Result documented in this encounter Visit Diagnoses Not on filedocumented in this encounter Additional Health Concerns Infection Onset Date Last Indicated Resolved Time COVID: Suspected 10/12/2021 10/12/2021 10/12/2021 12:15 PM CDT COVID: Suspected 08/01/2022 08/01/2022 08/01/2022 3:06 PM ELECTRONICS LEAD COVID19 08/01/2022 08/01/2022 08/11/2022 3:05 AM ELECTRONICS LEAD COVID: Recovered Comment:Added based on recent COVID infection. 08/11/2022 09/30/2022 11/09/2022 3:05 AM C DT documented as of this encounter Care Teams Signal Maintenance Technician Relationship Specialty Start Date End Date Davonte Wilkinson MD PCP - General Family Medicine 11/16/18 06/26/19 Juliana Warner PA [address] [address] PCP - General Internal Medicine 06/27/19 documented as of this encounter
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
--- OUTSIDE RECORDS SUMMARY | 2024-09-21 19:37 | XMS_ITS | Clinical Summary ---
Author Organization [facility] Care Team Providers Care Assistant Spa Director Name Role Phone Unavailable Primary Care Provider Unavailabl e Social History Tobacco Use Types Packs/Day Years Used Date Smoking Tobacco: Never Assessed Sex and Gender Information Value Date Recorded Sex Assigned at Not on file Legal Sex Male 3:31 PM LEASE EXAMINER Gender Identity Not on file Sexual Orientation Not on file Plan of Treatment Health Maintenance Due Date Last Done Comments Hepatitis C Virus (HCV) Screening 1970 TdaP Immunization 1970 Hepatitis B Immunization (1 of 3 - 19+ 3-dose series) 1989 Colonoscopy 10/15/2015 Colorectal Cancer Screening 10/15/2015 Cologuard 2020 Immunochemical Fecal Occult Blood 2020 Pneumococcal Immunization (5 0+ years) (1 of 1 - PCV) 2020 Zoster Immunization (1 of 2) 2020 Influenza Immunization (#1) 2024 04/03/2021 SARS-COV-2 Immunization (3 - 2023- season) 2024 04/26/2021, 08/30/2020 Respiratory Syncytial Virus (RSV) Immunization (Adult) (1 - 1-dose 75+ series) 2045 Meningococcal Immunization (ACWY) Aged Out No longer eligible b ased on patient's age to complete this topic Pneumococcal Immunization Combined Aged Out No longer eligible b ased on patient's age to complete this topic Rotavirus Immunization Aged Out No lo nger eligible based on patient's age to complete this topic
[2024-09-21 19:42] LABS: Alanine Aminotransferase 22 U/L (6-50); Albumin Level 4.9 g/dL (3.5-5.1); Alkaline Phosphatase 96 U/L (38-126); Anion Gap 10 mmol/L (4-12); Aspartate Amino Transferase 30 U/L (17-59); Blood Urea Nitrogen 14 mg/dL (9-20); Calcium 9.6 mg/dL (8.4-10.2); Carbon Dioxide 26 mmol/L (22-30); Chloride 104 mmol/L (98-107); Estimated CRCL calculation 99 ml/min; Estimated Glomerular Filt Rate > 60; Glucose 112 mg/dL (65-110); Lipase 85 U/L (23-300); Potassium 4.2 mmol/L (3.4-5.0); Sodium 140 mmol/L (137-145)
[2024-09-21 19:43] LABS: Partial Thromboplastin Time 28.9 Seconds (22.3-36.8)
[2024-09-21 19:53] LABS: Troponin I < 0.012 ng/mL (0.000-0.034)
[2024-09-21] MEDS: MORPHINE SULFATE (*CRX) 4 MG/ML INJ IV PUSH (19:57)
[2024-09-21] MEDS: KETOROLAC 15 MG/ML VIAL (*BKC) IV PUSH (19:57)
[2024-09-21 20:00] VITALS: BP 136/92; PULSE 79; RESP 18; O2SAT 96
[2024-09-21 20:22] LABS: Amphetamine Screen Urine Negative (Negative); Barbiturate Screen Urine Negative (Negative); Benzodiazepines Screen Urine Negative (Negative); Cannabinoid Screen Urine Negative (Negative); Cocaine Screen Urine Negative (Negative); Methadone Screen Urine Negative (Negative); Opiate Screen Urine Negative (Negative); Phencyclidine Screen Urine Negative (Negative)
[2024-09-21] MEDS: KETOROLAC 30 MG/ML VIAL (*BKC) IV PUSH (22:03)
== END 2024-09-21 22:11 | disposition home or self-care (01) ==
PROVIDERS: Emergency Provider Student in an Organized Health Care Education/Training Program; PCP Physician Assistant
DX: R07.89 Other chest pain (principal); S69.91XA Unspecified injury of right wrist, hand and finger(s), initial encounter; I10 Essential (primary) hypertension; E78.5 Hyperlipidemia, unspecified; M47.812 Spondylosis without myelopathy or radiculopathy, cervical region; J32.9 Chronic sinusitis, unspecified; V44.5XXA Car driver injured in collision with heavy transport vehicle or bus in traffic accident, initial encounter
CPT/HCPCS: 36415; 70450; 71045; 71260; 72125; 72129; 72132; 73110; 74177; 80053; 80307; 81003; 83690; 84484; 85025; 85610; 85730; 93005; 96374; 96375; 99284; J1885; J2270; Q9967

== ENCOUNTER 2025-02-16 14:40 | Outpatient (CLI) | payer OTHER, BC, SELFPAY ==
--- NOTE | ~2025-02-16 | CT_ITS ---
EXAMINATION: CT abdomen pelvis w con DATE: 02/16/2025 15:40 INDICATION: Varicocele TECHNIQUE: Computed tomography (CT) of the abdomen and pelvis was performed with 100 mL Omnipaque-350 intravenous contrast. Automated exposure control and iterative reconstruction technique were employed. The dose-length product was 640.14 mGy-cm. COMPARISON: 09/21/2024 FINDINGS: New prominent elevation of the left hemidiaphragm with moderate basilar atelectasis in the left lower lobe and to lesser degree at the posterior lingula. Heart size is normal. No pericardial or pleural effusion. Liver, gallbladder, spleen, pancreas, bilateral adrenal glands and kidneys are normal. Bladder is normal. Prostatomegaly measuring 4.5 x 3.5 cm. Bowels including the appendix are normal. Very small fat-containing umbilical hernia. No free intraperitoneal gas or fluid. No pathologically enlarged abdominal or pelvic lymphadenopathy. Moderate lumbosacral spondylosis with mild spondylosis more c ephalad lumbar and lower thoracic spine. IMPRESSION: 1. No acute intra-abdominal/pelvic process. 2. Moderate likely compressive atelectasis in the left lower lobe and lingula along the newly elevated left hemidiaphragm. Reviewed, dictated and finalized at location A. IMPRESSION: 1. No acute intra-abdominal/pelvic process. 2. Moderate likely compressive atelectasis in the left lower lobe and lingula a long the newly elevated left hemidiaphragm.
--- OUTSIDE RECORDS SUMMARY | 2025-02-16 14:49 | XMS_ITS | Encounter Summary ---
Author Organization [facility] Healthcare Address [address] [place] [address] Care Team Providers Care Equipment Detailer Name Role Phone Juliana Warner Primary Care Provider [phone] Encounter Details Date Type Department Care Team ([facility] st Contact Info) Description 12/17/2024 Results Follow-Up [facility] Family Medicine [address] [place] [address] Juliana Warner PA [address] [place] [address] MMR (IGG) PANEL (MEASLES, MUMPS, RUBELLA) Social History Tobacco Use Types Packs/Day Years Used Date Smoking Tobacco: Never Smokeless Tobacco: Never Alcohol Use Standard Drinks/Week Comments Yes 0 (1 standard drink = 0.6 oz pur e alcohol) social AUDIT-C Answer Date Recorded Q1: How often do you have a drink containing alc ohol? Monthly or less 12/09/2024 Q2: How many drinks containi ng alcohol do you have on a typical day when you are drinking? 1 or 2 12/09/2024 Q3: How often do you have si x or more drinks on one occasion? Less than monthly 12/09/2024 PHQ-2 Answer Date Recorded PHQ-2 Total Score (If total score is 3 or more points, staff should administer the PHQ-9) 0 12/09/2024 Sex and Gender Information Value Date Recorded Sex Assigned at Not on file Legal Sex Male 8:51 PM SIDE SEAM ENVELOPE MACHINE OPERATOR Gender Identity Not on file Sexual Orientation Not on file Occupation Industry Job Start Date Job End Date construction Not on file Not on file Not on file documented as of this encounter Plan of Treatment Not on file documented as of this encounter Visit Diagnoses Not on filedocumented in this encounter Care Teams Equipment Detailer Relationship Specialty Start Date End Date Juliana Warner PA [address] [facility] [address] [place] [address] PCP - General Internal Medicine 06/27/19 documented as of this encounter
--- OUTSIDE RECORDS SUMMARY | 2025-02-16 14:49 | XMS_ITS | Encounter Summary ---
Author Organization [facility] Facility Care Team Providers Care Trim Master Operator Name Role Phone Davonte Wilkinson MD Primary Care Provider [phone] Juliana Warner Primary Care Provider [phone] Encounter Details Date Type Department Care Team (Latest Contact Info) Description 01/15/2018 Orders Only [facility] CLINCONV ProviderHelene MD [address] [place] [address] Social History Tobacco Use Types Packs/Day Years Used Date Smoking Tobacco: Never Assessed Sex and Gender Information Value Date Recorded Sex Assigned at Not on file Legal Sex Male 8:51 PM STRUCTURAL ANALYST Gender Identity Not on file Sexual Orientation [...] COVID: Suspected 08/01/2022 08/01/2022 08/01/2022 3:06 PM STRUCTURAL ANALYST COVID19 08/01/2022 08/01/2022 08/11/2022 3:05 AM STRUCTURAL ANALYST COVID: Recovered Comment:Added based on recent COVID infection. 08/11/2022 09/30/2022 11/09/2022 3:05 AM C DT documented as of this encounter Care Teams Trim Master Operator Relationship Specialty Start Date End Date Davonte Wilkinson MD PCP - General Family Medicine 11/16/18 06/26/19 Juliana Warner PA [address] [address] PCP - General Internal Medicine 06/27/19 documented as of this encounter
--- OUTSIDE RECORDS SUMMARY | 2025-02-16 14:49 | XMS_ITS | Clinical Summary ---
Author Organization [facility] Address [address] [place] [address] Care Team Providers Care Hydraulic Punch Press Operator Name Role Phone Unavailable Primary Care Provider Unavailabl e Source Comments [facility],non-owned Affiliates and Associated Physician Practices is amultiple site organization consisting of ambulatory clinics and hospital sitesin [place], [place], [place] and [place]. This disclosure is being madepursuant to the Care Everywhere program and may not contain all information available regarding this patient. Last updated 18.[facility] Allergies No known active allergies Medications * Be aware that medications may not be up to date on this document. Alwaysverify current medications with the patient. atorvastatin (LIPITOR) 10 MG tablet 2 02/09/2019 Active fluticasone propionate (FLONASE) 50 MCG/ACT nasal spray [place] 1 spray into the nose Active gabapentin [...] at Not on file Legal Sex Male 11:42 AM CDT Gender Identity Not on file [...] 7:47 AM CDT Height 180.3 cm (5' 11) 03/21/2019 7:47 AM CDT Body Mass Index [...] VACCINE (1 - 2023-2 5 season) 2024 DEPRESSION SCREENING 06/22/2024 INFLUENZA VACCINE (#1) 2025 HIB VACCINE Aged Out No longer eligi [...] diagnosis of diabetes in children. According to [place] Diabetes Association (ADA) guidelines, hemoglobin A1c <7.0% represents optimal control in non- diabetic patients. Different metrics may apply to specific patient populations. Standards of Medical Care in Diabetes(ADA). Test Performed at: [employer] [email or web address] [address] [place] [address] RJ BUI DO,MPH 03/25/2019 7:10 AM CDT 03/25/2019 7:12 AM CDT Veena Nicholas MD LAB - CHEMISTRY ORDERABLES Final Result [facility] [address] [place] [address] from Last 3 Months or Most Recently Relevant to Health Maintenance Insurance ANTHEM ANTHEM
--- OUTSIDE RECORDS SUMMARY | 2025-02-16 14:49 | XMS_ITS | Clinical Summary ---
Author Organization [facility] [address] [facility] Address [address] [place] [address] Care Team Providers Care Director Of Intelligence Name Role Phone Juliana Warner Primary Care Provider [phone] Allergies Active Allergy Reactions Criticality Noted Date Comments Oxycodone Chest tightness Medium 10/02/2023 Medications fluticasone propionate (FLONASE) 50 mcg/actuation nasal spray Administer 1 spray into each nostril as needed for rhinitis Active atorvastatin (LIPITOR) 40 mg tabletIndications: Mixed hyperlipidemia Take 1 tablet (40 mg total) by mouth daily 90 tablet 1 5 Active lisinopriL (PRINIVIL,ZESTRIL) 20 mg tablet Take 1 tablet (20 mg total) by mouth daily 5 Active Active Problems Problem Noted Date Diagnosed Date Seasonal allergic rhinitis due to pollen 025 Pre-diabetes 04/08/2024 Assessment & Plan (05/13/2024 11:06 AM VICE PRESIDENT PROCESS): Pre-diabetes/hyperglycemia is a precursor to Dm. Stressed [...] 04/08/2024 Assessment & Plan (05/13/2024 11:06 AM VICE PRESIDENT PROCESS): Bp is stable/in acceptable range for any [...] today Assessment & Plan (05/04/2022 10:09 AM VICE PRESIDENT PROCESS): Updated in the office today Acquired hypothyroidism 03/15/2021 Assessment & Plan (05/13/2024 11:06 AM VICE PRESIDENT PROCESS): Check labs Assessment & Plan (10/03/2023 2:42 [...] labs. Assessment & Plan (05/04/2022 10:08 AM VICE PRESIDENT PROCESS): Patient stop the levothyroxine. Recheck labs Assessment & Plan (12/03/2021 7:52 AM CDT): Continue levothyroxine. Monitor labs. Assessment & Plan (03/15/2021 6:01 PM CDT): Tolerating the levothyroxine without problems. Due to recheck labs. BMI 26.0-26.9,adult 02/14/2020 Assessment & Plan (12/09/2024 8:06 AM CDT): Weight/BMI is in healthy range. Continue healthy lifestyle to maintain. Assessment & Plan (05/13/2024 10:08 AM VICE PRESIDENT PROCESS): Weight/BMI is in healthy range. Continue healthy lifestyle to maintain. Assessment & Plan (04/01/2024 7:23 AM CDT): Weight/BMI is in healthy range. Continue healthy lifestyle to maintain. Assessment & Plan (02/18/2020 8:23 PM CDT): Weight/BMI is in healthy range. Continue healthy lifestyle to maintain. Mixed hyperlipidemia 12/31/2017 Assessment & Plan (05/13/2024 11:05 AM VICE PRESIDENT PROCESS): Encouraged patient to follow low fat/low chol [...] prefers to use behavioral changes and his [place] concoction to help with his diabetes. Strongly encouraged him to work hard and will recheck in 3-4 months and if values are still elevated will consider statin again. He is in agreement with the plan Assessment & Plan (05/04/2022 10:08 AM VICE PRESIDENT PROCESS): Encouraged patient to follow low fat/low chol [...] 04/08/2024 Assessment & Plan (05/04/2022 10:09 AM VICE PRESIDENT PROCESS): On exam today his left foot pain [...] 23 Assessment & Plan (05/02/2022 8:45 AM VICE PRESIDENT PROCESS): Weight/BMI is in healthy range. Continue healthy [...] readings home and send them in via [employer] or call them in the next week [...] 12:47 PM CDT): Retrieve xray records from [facility] Advised RICE therapy, brace when ambulating and [...] 02/13/2020 Assessment & Plan (06/27/2019 6:54 PM VICE PRESIDENT PROCESS): Augmentin 875 mg BID x 10 days. Instructed to increase clear liquids, rest, and vitamin C. OTC medications as needed for symptom control. Recommended follow-up with PCP if symptoms worsen, don't improve, or new symptoms develop. Upper back pain on right side 06/27/2019 02/18/2020 Assessment & Plan (06/27/2019 6:56 PM VICE PRESIDENT PROCESS): Ibuprofen as directed as needed for pain. [...] of continued A1c control to minimize the certified respiratory therapist effects of diabetes. Bring accuchecks to office when instructed to do so. Check A1c about every 3-6 months. Take medication as prescribed. Get annual eye exam. Encouraged GABRIELLE/Statin if able to tolerate. Encouraged weight control and encouraged diabetic diet and exercise. Continue to have diet controlled with good results Assessment & Plan (05/04/2022 10:08 AM VICE PRESIDENT PROCESS): Diabetes is currently diet controlled. Continue to [...] Encounters Date Type Department Care Team Description 12/17/2024 Results Follow-Up [address] [phone] Juliana Warner PA MMR (IGG) PANEL (MEASLES, MUMPS, RUBELLA) 12/09/2024 8:00 AM CDT Office Visit [address] [place] [phone] Juliana Warner PA Hypertension, essential (Primary Dx); Mixed hyperlipidemia; Immunity status testing; BMI 26.0-26.9,adult from Last 3 Months Immunizations Immunization Administration Dates Next Due Influenza, Quadrivalent, Spl it, Preservative Free, Intramuscular 03/27/2023,05/02/2022 Influenza, Trivalent, Preser vative Free, Intramuscular 04/01/2024 Influenza, Unspecified 06/22/2024(Deferr ed: Patient Refused),07/23/2021(Deferred: Patient Refused),06/22/2020(Deferred: Patient Refused),03/22/2019(Deferred: Patient Refused) [employer] ([employer]) SARS-CoV-2 Vaccination 08/30/2020 Tdap 12/31/2018 Surgical [...] on file Legal Sex Male 8:51 PM VICE PRESIDENT PROCESS Gender Identity Not on file Sexual Orientation Not on file Occupation Industry Job Start Date Job End Date construction Not on file Not on file Not on file Obstetrics History Last Filed Vital Signs Vital Sign Reading Time Taken Comments Blood Pressure 132/80 12/09/2024 8:06 AM CDT Pt has not yet taken medication for the day Pulse 68 12/09/2024 8:06 AM CDT Temperature 38.3 C (100.9 F) 05/13/2024 10:02 AM VICE PRESIDENT PROCESS Was in heated car Respiratory Rate 16 04/01/2024 7:05 AM CDT Oxygen Saturation 97% 12/09/2024 8:0 6 AM CDT Inhaled Oxygen Concentration - - Weight 86 kg (189 lb 9.6 oz) 12/09/2024 8:06 AM CDT Height 180.3 cm (5' 11) 12/09/2024 8:0 6 AM CDT Body Mass Index 26.44 12/09/2024 8:06 AM CDT Plan of Treatment Health Maintenance Due Date Last Done Comments Hepatitis C Screening 1970 Hepatitis B Screening 1988 Covid-19 Vaccine (3 - season) 2024 04/26/2021, 08/30/2020 Regular Well Visit/Exam 18-64 10/01/2024 10/02/2023, 03/15/2021, 02/14/2020, Additional history exists Influenza Vaccine (#1) 2025 , 03/27/2023, 05/02/2022 Zoster Vaccine (1 of 2) 05/13/2025 Post poned from 2020 (Patient declined, but will receive in the future) Prostate Cancer Screening-PSA 10/02/2025 10/03/2023, 12/03/2021, 01/28/2019 Depression Screening 12/09/2025 12/09/2024, 09/27/2024, 05/13/2024, Additional history exists Colon Cancer Screening-Colonoscopy 05/24/2026 05/24/2021, 05/10/2021, 05/10/2021, Additional history exists DTaP/Tdap/Td Vaccine (2 - Td or Tdap) 12/31/2028 12/31/2018 Pneumococcal vaccine <65 Aged Out No longer eligible based on patient's age to complete this topic Procedures Procedure Name Priority Date/Time Associated Diagnosis Comments MMR (IGG) PANEL (MEASLES, MUMPS, RUBELLA) Routine 12/16/2024 11:56 AM CDT Immunity status testing PSA SCREEN Routine 10/03/2023 7:29 AM CDT Prostate cancer screening [facility] COLONOSCOPY Routine 05/24/2021 from Last 3 Months or Most Recently Relevant to Health Maintenance Results * MMR (IGG) PANEL (MEASLES, MUMPS, RUBELLA) (12/16/2024 11:56 AM CDT) Measles (Rubeola) IgG >300.00 AU/mL [facility] Comment: AU/mL Interpretation ----- <13.50 Not consistent with immunity 13.50-16.49 Equivocal >16.49 Consistent with immunity The presence of measles IgG suggests immunization or past or current infection with measles virus. For additional information, please refer to http://education.[employer]/faq/ZYG577 (This link is being provided for informational/ educational purposes only.) Mumps IgG 16.50 AU/mL [facility] Comment: AU/mL Interpretation ------- <9.00 Not consistent with immunity 9.00-10.99 Equivocal >10.99 Consistent with immunity The presence of mumps IgG antibody suggests immunization or past or current infection with mumps virus. Rubella IgG 5.65 Index [facility] Comment: Index Interpretation ----- <0.90 Not consistent with immunity 0.90-0.99 Equivocal > or = 1.00 Consistent with immunity The presence of rubella IgG antibody suggests immunization or past or current infection with rubella virus. Blood 12/16/2024 11:5 6 AM CDT 12/16/2024 11:58 AM CDT Juliana WHITMORE [facility] BLOOD ORDERABLES Final Result [facility] [address] [place] [address] * PSA screen (10/03/2023 7:29 AM CDT) PSA 1.73 < OR = 4.00 ng/mL [facility] Comment: The total PSA value from this assay system is standardized against the WHO standard. The test result will be approximately 20% lower when compared to the equimolar-standardized total PSA (Shashi Hamel). Comparison of serial PSA results should be [...] BLOOD ORDERABLES Final Result [facility] [address] [id number] * (ABNORMAL) COLONOSCOPY (05/24/2021) us Ambar Guallpa MD HEALTH MAINTENANCE Edited Result - Final from Last 3 Months or Most Recently Relevant to Health Maintenance [facility] Care Teams Director Of Intelligence Relationship Specialty Start Date End Date Juliana Warner PA [address] [facility] [address] [place] [address] PCP - General Internal Medicine 06/27/19
--- OUTSIDE RECORDS SUMMARY | 2025-02-16 14:49 | XMS_ITS | Clinical Summary ---
Author Organization [facility] Address [facility] [place] [address] Care Team Providers Care Unit Aide Tech Name Role Phone Juliana Warner Primary Care Provider [phone] Allergies No known active allergies Medications levothyroxine 25 MCG tablet Take 25 mcg by mouth daily. 03/17/2021 Active rosuvastatin 10 MG tablet Take 10 mg by mouth daily. 03/15/2021 Active fluticasone propionate 50 MCG/ACT nasal spray 1 spray by Nasal route. Active Active Problems No known active problems Immunizations Immunization Administration Dates Next Due igobubble ([facility]) COVID-19 AD26 VACCINE 0.5 ML IM SUSP [...] Comments Blood Pressure 113/83 05/09/2021 8:25 AM HEARING AND SPEECH ASSISTANT Pulse 56 05/09/2021 8:25 AM HEARING AND SPEECH ASSISTANT Temperature 37.6 C (99.7 F) 05/09/2021 8:04 AM HEARING AND SPEECH ASSISTANT Respiratory Rate 16 05/09/2021 8:25 AM HEARING AND SPEECH ASSISTANT Oxygen Saturation 97% 05/09/2021 8:25 AM HEARING AND SPEECH ASSISTANT Inhaled Oxygen Concentration - - Weight 86.2 kg (190 lb) 05/06/2021 11:06 AM HEARING AND SPEECH ASSISTANT Height 180.3 cm (5' 11) 05/06/2021 11:06 AM HEARING AND SPEECH ASSISTANT Body Mass Index 26.5 05/06/2021 11:06 AM HEARING AND SPEECH ASSISTANT Plan of Treatment Health Maintenance Due Date Last Done Comments Annual Physical 1973 Hepatitis C 1988 Hepatitis B Vaccines (1 of 3 - 19+ 3-dose series) 1989 Pneumococcal Vaccine: 50+ Years (1 of 1 - PCV) 2020 Zoster Vaccines (1 of 2) 2020 COVID-19 [...] Diagnosis Comments COLONOSCOPY Routine 05/09/2021 7:03 AM HEARING AND SPEECH ASSISTANT from Last 3 Months or Most Recently Relevant to Health Maintenance Insurance Care Teams Unit Aide Tech Relationship Specialty Start Date End Date Juliana Warner PA [address] [address] [place] [address] PCP - General PHYSICIAN WORK MANAGER 05/09/21
--- OUTSIDE RECORDS SUMMARY | 2025-02-16 14:49 | XMS_ITS | Clinical Summary ---
Author Organization [facility] Care Team Providers Care Office Bookkeeper Name Role Phone Unavailable Primary Care Provider Unavailabl e Social History Tobacco Use Types Packs/Day Years Used Date Smoking Tobacco: Never Assessed Sex and Gender Information Value Date Recorded Sex Assigned at Not on file Legal Sex Male 3:31 PM FORENSIC TECHNICIAN Gender Identity Not on file Sexual Orientation Not on file Plan of Treatment Health Maintenance Due Date Last Done Comments Hepatitis C Virus (HCV) Screening 1970 TdaP Immunization 1970 Hepatitis B Immunization (1 of 3 - 19+ 3-dose series) 1989 Cologuard 10/15/2015 Colonoscopy 10/15/2015 Colorectal Cancer Screening 10/15/2015 Immunochemical Fecal Occult Blood 10/15/2015 Pneumococcal Immunization (5 0+ years) (1 of 1 - PCV) 2020 Zoster Immunization (1 of 2) 2020 SARS-COV-2 Immunization (3 - 2023- season) 2024 04/26/2021, 08/30/2020 Influenza Immunization (#1) 2025 04/03/2021 Respiratory Syncytial Virus (RSV) Immunization (Adult) (1 - 1-dose 75+ series) 2045 Human Papillomavirus (HPV) Immunization Aged Out No longer eligible b ased on patient's age to complete this topic Meningococcal Immunization (ACWY) Aged Out No longer eligible b ased on patient's age to complete this topic Rotavirus Immunization Aged Out No lo nger eligible based on patient's age to complete this topic
[2025-02-16 15:29] LABS: Estimated Glomerular Filt Rate > 60
== END 2025-02-16 14:41 | disposition home or self-care (01) ==
PROVIDERS: PCP Physician Assistant; Visit Provider Urology
DX: I86.1 Scrotal varices (principal)
CPT/HCPCS: 74177; Q9967